=== PATIENT | female | born 1990 | race Caucasian/White ===

== ENCOUNTER → 2021-02-20 | Outpatient (CLI) | payer MEDICAID, OTHER ==
[~2021-02-20] MED LIST: ACET-789 PO; ACET1TAB43 PO; DOCU-143 PO; DOCU100C37 PO; FERR-57 PO; FERR325T18 PO; IBUP-1773 PO; PREN1TAB39 PO; RANI25TA PO
--- NOTE | 2021-02-20 15:14 | Diagnostic Imaging Report ---
PROCEDURE: US PELVIC (NON OB) TECHNIQUE: Multiple real-time grayscale images were obtained over the pelvis in various projections transabdominally. INDICATION: Dyspareunia. FINDINGS: Uterus measures 9.5 x 5.3 x 4.4 cm. Endometrial stripe is 6 mm. There is a 3.4 cm myometrial mass posteriorly in the uterus, likely representing fibroid. Right ovary measures 2.7 x 2.7 x 2.1 cm. Left ovary measures 3.3 x 3.6 x 2.6 cm. There are follicular cysts present. There is normal blood flow to both ovaries. There is no free fluid. IMPRESSION: Myometrial mass in the lower uterine segment near the cervix, likely representing fibroid. This measures upwards of 3.4 cm. Dictated by: Dictated on workstation # [id number]
== END ==
LOC: RAD 12:34
PROVIDERS: ATTEND Obstetrics & Gynecology
DX: N85.8 Other specified noninflammatory disorders of uterus (principal)
CPT/HCPCS: 76856

== ENCOUNTER 2021-03-12 05:35 | Outpatient (CLI) | payer OTHER ==
[~2021-03-12] VITALS: Ht 170.2 cm; Wt 75.0 kg
[2021-03-12] MEDS ORDERED: BUSP5TAB59 PO (11:13)
== END 2021-03-12 11:16 | disposition home or self-care (01) ==
LOC: PREOP 05:35
PROVIDERS: ATTEND Obstetrics & Gynecology
DX: Z01.818 Encounter for other preprocedural examination (principal)

== ENCOUNTER 2021-04-07 08:03 | Day surgery (SDC) | payer OTHER ==
[2021-04-07] VITALS (10 sets, daily range): BP systolic 96–110; BP diastolic 46–70
[~2021-04-07] VITALS: Ht 170.2 cm; Wt 75.0 kg
[~2021-04-07 08:03] MED LIST changes: +BUSP5TAB59 PO
[2021-04-07] MEDS ORDERED: metroNIDAZOLE 500MG/100ML IVPB 100 ML IV ONE (08:15)
[2021-04-07] MEDS ORDERED: ceFAZolin 2 GM IV Premixed 50 ML IV ONE (08:15)
[2021-04-07] MEDS ORDERED: LACTATED RINGERS 1,000 ML IV ONE (08:15)
[2021-04-07 08:48] LABS: BASOPHILS % (AUTO) 0 % (0-10); EOSINOPHILS % (AUTO) 0 % (0-10); HEMATOCRIT 43 % (35-52); HEMOGLOBIN 14.8 g/dL (11.5-16.0); LYMPHOCYTES # (AUTO) 1.8 10^3/uL (1.0-4.0); LYMPHOCYTES % (AUTO) 19 % (12-44); MEAN CORPUSCULAR HEMOGLOBIN 31 pg (25-34); MEAN CORPUSCULAR HGB CONC 35 g/dL (32-36); MEAN CORPUSCULAR VOLUME 89 fL (80-99); MEAN PLATELET VOLUME 9.4 fL (9.0-12.2); MONOCYTES # (AUTO) 0.6 10^3/uL (0.0-1.0); MONOCYTES % (AUTO) 7 % (0-12); NEUTROPHILS % (AUTO) 74 % (42-75); PLATELET COUNT 274 10^3/uL (130-400); WHITE BLOOD COUNT 9.5 10^3/uL (4.3-11.0)
[2021-04-07] MEDS ORDERED: ONDANSETRON 4 MG/2 ML (SDV) Z0FRAN IV ONE (09:00)
[2021-04-07] MEDS ORDERED: FAMOTIDINE 20MG/2ML IV (PEPCID) IV ONE (09:00)
[2021-04-07] MEDS ORDERED: fentaNYL INJ 100 MCG/2 ML AMP IV ONE (09:00)
[2021-04-07] MEDS ORDERED: SCOPOLAMINE 1.5 MG (TRANSDERM-SCOP) PATCH TOP ONE (09:00)
[2021-04-07] MEDS: LACTATED RINGERS 1,000 ML IV PRN ×2 (09:15→11:05)
[2021-04-07] MEDS ORDERED: BUPIVACAINE 0.25% 30 ML (SENSORCAINE) VIAL ONE (09:38)
--- NOTE | 2021-04-07 10:24 | Progress Note-Pre Operative ---
Pre-Operative Progress Note H&P Reviewed The H&P was reviewed, patient examined and no changes noted. Date Seen by Provider: Apr 07, 2021 Time Seen by Provider: 10:15 Date H&P Reviewed: Apr 07, 2021 Time H&P Reviewed: 10:00 Pre-Operative Diagnosis: Fibroid uterus, CPP, Dyspareunia FELIPE SANCHEZ DO Apr 07, 2021 10:24
[2021-04-07] MEDS ORDERED: ONDANSETRON 4 MG/2 ML (SDV) Z0FRAN ONE (10:25)
[2021-04-07] MEDS ORDERED: fentaNYL INJ 100 MCG/2 ML AMP ONE (10:25)
[2021-04-07] MEDS ORDERED: GLYCOPYRROLATE 0.2 MG/ML (ROBINUL) 2 ML VIAL ONE (10:25)
[2021-04-07] MEDS ORDERED: proPOfol 200 MG/20 ML (DIPRIVAN) VIAL IV ONE (10:25)
[2021-04-07] MEDS ORDERED: NEOSTIGMINE 3 MG/3 ML VIAL ONE (10:25)
[2021-04-07] MEDS ORDERED: ROCURONIUM 50 MG/5 ML (ZEMURON) VIAL IV ONE (10:25)
[2021-04-07] MEDS ORDERED: LIDOCAINE PF 2% 5 ML (XYLOCAINE) VIAL ONE (10:25)
[2021-04-07] MEDS ORDERED: MIDAZOLAM 2 MG/2 ML (VERSED) VIAL ONE (10:25)
--- NOTE | 2021-04-07 10:27 | Discharge Inst-Women's Service ---
Discharge Inst-Women's Serv Depart Medication/Instructions New, Converted or Re-Newed RX: Transmitted to Pharmacy Problems Reviewed?: Yes Consults/Follow Up Additional Follow Up: Yes Orders/Referrals Dr. Santana in 7-10 days and in 8 weeks Activity Activity: Activity as Tolerated Driving Instructions: No Driving for 1 Week NO SMOKING: NO SMOKING Nothing Inside Vagina: No Douching, No [place], No Tampons Diet Discharge Diet: No Restrictions Symptoms to Report to : Bleeding Excessive, Pain Increased, Fever Over 101 Degrees F, Vaginal Bleeding Increase, Questions/Concerns For Any Problems or Questions: Contact Your Physician Skin/Wound Care Infection Signs and Symptoms: Increased Redness, Foul Odor of Wound, Increased Drainage, Skin Itchy or Has a Rash, Increased Swelling, Temperature Above 101 F Operative Area Clean and Dry: Keep Incision Clean/Dry Stitches/Wendy/Dermabond: Dermabond, Care of Stitches Bathing Instructions: FELIPE Montilla DO Apr 07, 2021 10:27
[2021-04-07] MEDS ORDERED: HYDR-34 PO (10:28)
[2021-04-07] MEDS ORDERED: SMT80CT PO (10:28)
[2021-04-07] MEDS ORDERED: IBUP-844 PO (10:28)
[2021-04-07] MEDS ORDERED: DOCU100C37 PO (10:28)
[2021-04-07] MEDS ORDERED: LACTATED RINGERS 1,000 ML IV SCH (10:30)
[2021-04-07] MEDS ORDERED: CHLORASEPTIC LOZENGE MM PRN (10:30)
[2021-04-07] MEDS ORDERED: NALOXONE 0.4 MG/ML 1 ML (NARCAN) VIAL IV PRN (10:30)
[2021-04-07] MEDS ORDERED: HYDROcodone/APAP 7.5 MG/325 MG (LORTAB, LORCET PLUS) TABLET PO PRN (10:30)
[2021-04-07] MEDS ORDERED: ANTACID SUSP 30 ML UDC (MYLANTA) PO PRN (10:30)
[2021-04-07] MEDS ORDERED: SIMETHICONE 80 MG (MYLICON) CHEW PO PRN (10:30)
[2021-04-07] MEDS ORDERED: ZOLPIDEM 5 MG (AMBIEN) TAB PO PRN (10:30)
[2021-04-07] MEDS ORDERED: DOCUSATE SODIUM 100 MG (COLACE) CAP PO PRN (10:30)
[2021-04-07] MEDS ORDERED: HYDROmorphone 2 MG/ML VIAL (DILAUDID) ONE (11:53)
[2021-04-07] MEDS ORDERED: IBUPROFEN 600 MG (MOTRIN) TAB PO SCH (12:00)
[2021-04-07] MEDS ORDERED: SEVOFLURANE (ULTANE) 15 ML INHAL SOLN ONE (12:09)
[2021-04-07] MEDS ORDERED: KETOROLAC 30 MG/ML VIAL ONE (12:40)
[2021-04-07] MEDS: KETOROLAC 30 MG/ML VIAL IVP PRN ×2 (12:41→20:38)
[2021-04-07] MEDS: ONDANSETRON 4 MG/2 ML (SDV) Z0FRAN IV PRN ×2 (14:12→17:41)
--- NOTE | 2021-04-07 14:29 | OPERATIVE REPORT ---
DATE OF SERVICE: PREOPERATIVE DIAGNOSES: 1. A 30-year-old female with dyspareunia. 2. Fibroid uterus. 3. Chronic pelvic pain. POSTOPERATIVE DIAGNOSES: 1. A 30-year-old female with dyspareunia. 2. Fibroid uterus. 3. Chronic pelvic pain. PROCEDURE: Robotic-assisted total laparoscopic hysterectomy with bilateral salpingectomy. SURGEON: Scott Santana DO [employer] DIRECTOR: Ana Hayes DNP, was necessary for manipulation and retraction throughout the procedure. ANESTHESIA: General endotracheal. ESTIMATED BLOOD LOSS: Minimal. URINE OUTPUT: 300 mL clear at the end of the procedure. FLUIDS: 1800 mL lactated Ringer's solution. FINDINGS: Grossly normal appearing external female genitalia, grossly normal-appearing uterus with a protrusion of the posterior aspect of the uterus consistent with an intramural subserosal fibroids, grossly normal appearing bilateral ovaries, fallopian tubes with evidence of previous tubal ligation. SPECIMEN SENT: Uterus, bilateral fallopian tubes. INDICATIONS FOR PROCEDURE: This 30-year-old female is a patient who had sought care in my office for ongoing issues with pain with intercourse. She also came in for annual well woman visit. Initial testing was negative for infection. Ultrasound was negative with the exception of a large 3.5 cm posterior uterine wall fibroid. We discussed how this could be the potential cause of her issues. She had also noticed a change in bleeding pattern, probably in the past 6 to 12 months. Due to these issues, we did discuss conservative measures; however, the patient does not desire children anymore. She has had a tubal ligation and she wishes to proceed with more definitive therapy for this fibroid. Risks of the procedure were discussed with the patient in detail including risk of bleeding, infection, damage to surrounding structures including, but not limited to bowel, bladder, ureter, kidneys, possible need for operation, postoperative complications that may occur, risk from anesthesia and even . After everything was discussed with the patient in detail, consent was obtained in the preoperative area, the patient was taken to the operating room. OPERATIVE REPORT IN DETAIL: Once in the operating room, general anesthesia was found to be adequate. She was placed in dorsal lithotomy position, prepped and draped in normal sterile fashion. A timeout was performed. A Ferguson catheter was placed using sterile technique. A weighted speculum inserted to the patient's vagina. Right angle retractor was utilized to visualize cervix and 0 Vicryl suture was then placed in the anterior lip of the cervix and the suture was in my retraction point on the cervix. I then gently sound the uterine cavity, depth was found to be 8 cm. I placed an 8 cm Trish uterine manipulator tip and a 3.5 cm colpotomy ring. The manipulator tip was placed in the uterus with the balloon was deployed and the colpotomy ring was advanced around the vaginal fornix. Once both of these are in place, I am able to appreciate excellent bimanual manipulation. I then performed a change of gloves obtained my attention to the abdomen, where subcostally at the midclavicular line on the left. I inserted a Veress needle through the skin until intraperitoneal placement was confirmed using a saline drop test. An opening pressure of 4 mmHg was noted, proceeded to maximum pressure of 15 mmHg using CO2 gas, at which point, I made an infraumbilical incision after infiltrating the skin using 0.25% Marcaine. Incision was 8 mm wide and allows me to place an 8 mm blunt da Alvino camera trocar through the incision, intraperitoneal placement was confirmed using the da Alvino laparoscope. There was no evidence of damage upon my trocar entry site. There was no evidence of damage in the upper abdomen of the Veress entry site and the Veress was removed at that point. I then had the patient placed in steep Trendelenburg. I am able to visualize all my anatomy as defined in my findings above. I placed two lateral trocars approximately 8 cm lateral to my infraumbilical trocar. Once both of these trocars were in place, I bring in the da Alvino robot and docked in appropriate fashion, placing the SynchroSeal device in the left hand and monopolar louisa in the right hand performed the following dissection bilaterally starting at the uteroovarian ligament, I sealed and transected using the SynchroSeal device. I then created a window in the mesosalpinx and took this dissection laterally amputating the fallopian tube from its surrounding blood supply. I then grasped the round ligament, which I sealed and transected using the SynchroSeal device. This allows me to grasp the entire broad ligament, which I sealed and transected using the SynchroSeal device down to the level of the lower uterine segment, at which point I the anterior and posterior leaflets of the broad ligament. The Anterior leaflet was taken around to the anterior vaginal fornix and posterior leaflets was taken around the posterior vaginal fornix. This allows me to skeletonize the uterine vessels laterally, which I sealed and transected using the SynchroSeal device. I then created a colpotomy at 12 o'clock position using monopolar louisa and took this circumferentially around the vaginal fornix amputating the cervix away from the vagina. The entire specimen was then removed through the vagina. I then closed the lateral vaginal apices of the vaginal cuff using 2-0 Vicryl suture in a [id number] fashion colposuspending them to the uterosacral ligaments. I closed the remainder of the vaginal cuff using 2-0 V-Loc in a running fashion, after which there was no active bleeding noted from any of my dissection planes. I then undocked the da Alvino robot and proceeded with remainder of the case laparoscopically. Again, I copiously irrigated the pelvis using normal saline. Once again, there was no active bleeding noted from any of my dissection planes. I placed Surgiflo hemostatic agent over all my planes of dissection to ensure excellent postoperative hemostasis. I then had the patient taken out of steep Trendelenburg where I removed the lateral trocars under direct visualization and laparoscope. Infraumbilical trocars left in place to release insufflation and to introduce 10 mL of 0.25% Marcaine peritoneal cavity for postoperative pain management. I then removed this trocar as well. The skin reapproximated using 4-0 Monocryl in interrupted subcuticular stitches. Dermabond was applied to the incisions and Band-Aids were placed over all 3 incisions. The patient tolerated the procedure well and sent to recovery in stable condition. Lap and sponge counts were correct at the end of procedure. Instrument counts correct as well. Catheter was left in place. Two grams of Ancef, 500 mg of Flagyl were given preoperatively for infection prophylaxis. Job ID: [id number] DocumentID: [id number] Dictated Date: 04/07/2021 13:00:00 Bathhouse Attendant Date: 04/07/2021 14:28:26 Dictated By: DO ANTHONY SANDHU
[2021-04-07] MEDS ORDERED: PROMETHAZINE INJ 25 MG/ML (PHENERGAN) AMP IVP PRN (14:45)
[2021-04-07] MEDS ORDERED: HYDROmorphone 2 MG/ML VIAL (DILAUDID) IV ONE (14:45)
--- NOTE | 2021-04-08 07:11 | Anesthesia-General Post-Op ---
General Patient Condition Mental Status/LOC: Same as Preop Cardiovascular: Satisfactory Nausea/Vomiting: Absent Respiratory: Satisfactory Pain: Controlled Complications: Absent Post Op Complications Complications None Follow Up Care/Instructions Patient Instructions None needed. Anesthesia/Patient Condition Patient Condition Patient is doing well, no complaints, stable vital signs, no apparent adverse anesthesia problems. No complications reported per nursing. D/C home per [facility] Criteria: Yes DAMIR GIRON CRNA Apr 08, 2021 07:11
== END 2021-04-07 21:00 | disposition home or self-care (01) ==
LOC: SDC 08:03 → WS 13:10 → SDC 21:00
PROVIDERS: ATTEND Obstetrics & Gynecology
DX: N80.0 Endometriosis of uterus (principal); D25.9 Leiomyoma of uterus, unspecified; N83.8 Other noninflammatory disorders of ovary, fallopian tube and broad ligament; N94.12 Deep dyspareunia; F41.9 Anxiety disorder, unspecified; Z79.899 Other long term (current) drug therapy; Z98.51 Tubal ligation status; Z98.890 Other specified postprocedural states
CPT/HCPCS: 36415; 84703; 85025; 86850; 86900; 86901; 87081; 94664

== ENCOUNTER → 2021-05-05 | Outpatient (CLI) | payer OTHER ==
[~2021-05-05] MED LIST changes: +HYDR-34 PO; +IBUP-844 PO; +SMT80CT PO
--- NOTE | 2021-05-05 14:32 | Diagnostic Imaging Report ---
PROCEDURE: US Non-ob pelvis comp/trans. TECHNIQUE: Multiple Real-time grayscale images were obtained of the pelvis in various projections endovaginally. Transabdominal imaging was also performed. INDICATION: Post hysterectomy bleeding. FINDINGS: The uterus is surgically absent. There are no pathologic masses or fluid collections seen in the pelvis. The ovaries are normal in size. There is no free fluid. IMPRESSION: Unremarkable post hysterectomy pelvic ultrasound. Dictated by: Dictated on workstation # [id number]
== END ==
LOC: RAD 10:59
PROVIDERS: ATTEND Obstetrics & Gynecology
DX: N99.820 Postprocedural hemorrhage of a genitourinary system organ or structure following a genitourinary system procedure (principal); Z90.710 Acquired absence of both cervix and uterus
CPT/HCPCS: 76830; 76856